=== PATIENT | male | born 1995 | race Caucasian/White ===

== ENCOUNTER 2019-02-14 10:37 | Emergency (ER) | payer OTHER ==
[~2019-02-14] VITALS: Ht 188 cm; Wt 109.1 kg
[2019-02-14 10:39] VITALS: BP 135/92; TEMP 97.1
[2019-02-14] MEDS ORDERED: PROAIR HFA0.09 MG/AC IH ×2 (11:01→11:25)
[2019-02-14] MEDS ORDERED: SINGULAIR 110 MG/TAB PO (11:01)
[2019-02-14] MEDS ORDERED: PREDNISONE20 MG PO (11:25)
[2019-02-14 12:01] VITALS: PULSE 121
== END 2019-02-14 12:07 | disposition home or self-care (01) ==
LOC: COL.ER 10:37
DX: J45.901 Unspecified asthma with (acute) exacerbation (principal)
CPT/HCPCS: J7512